=== PATIENT | male | born 1940 | race Caucasian/White ===

== ENCOUNTER 2022-08-28 09:06 | Inpatient (IN) | payer OTHER ==
[~2022-08-28] VITALS: Ht 172.7 cm; Wt 68.0 kg
[2022-08-28 09:42] VITALS: BP_SYST 144
--- NOTE | 2022-08-28 10:52 | NUR ---
Placed in room 01 . Placed on site monitor, blood pressure machine and pulse oximeter. To gown for exam. Side rails up. Report given to ESTEFANY CORDOVA.
--- NOTE | 2022-08-28 10:58 | NUR ---
EDP AT BEDSIDE FOR INITIAL ASSESSMENT.
--- NOTE | 2022-08-28 11:18 | NUR ---
patient c/o weakness/ unable to walk, place in room 1 awaiting for edp for initial assessment.
[2022-08-28 11:20] LABS: BASOPHILS % (AUTO) 0.5 % (0.0-2.0); EOSINOPHILS % (AUTO) 0.4 % (0.0-4.0); HEMATOCRIT 45.7 % (36-54); HEMOGLOBIN 14.7 g/dL (14.0-18.0); LYMPHOCYTES # (AUTO) 2.5 K/uL (1.0-5.5); LYMPHOCYTES % (AUTO) 24.6 % (20.5-51.5); MEAN CORPUSCULAR HEMOGLOBIN 25 pg (27-31); MEAN CORPUSCULAR HGB CONC 32 % (32-36); MEAN CORPUSCULAR VOLUME 79 fL (79.0-98.0); MONOCYTES # (AUTO) 1.1 K/uL (0.0-1.0); MONOCYTES % (AUTO) 10.6 % (1.7-9.3); NEUTROPHILS # (AUTO) 6.4 K/uL (1.8-7.7); NEUTROPHILS % (AUTO) 63.9 % (40.0-70.0); PLATELET COUNT (AUTO) 460 K/uL (130-430); RED BLOOD CELL COUNT(AUTO) 5.81 MIL/uL (4.2-6.2); RED CELL DISTRIBUTION WIDTH 18.5 % (9.0-15.0); WHITE BLOOD COUNT (AUTO) 10.1 K/uL (4.8-10.8)
[2022-08-28 11:29] LABS: ANION GAP 9 (5-15); CALCIUM 9.5 mg/dL (8.4-11.0); CHLORIDE 103 mmol/L (98-107); CREATININE 0.91 mg/dL (0.55-1.30); GLUCOSE 121 mg/dL (70-99); UREA NITROGEN, BLOOD 9 mg/dL (8-21)
[2022-08-28 11:44] LABS: ALANINE AMINOTRANSFERASE 12 U/L (12-78); ALBUMIN 3.3 g/dL (3.4-4.8); ASPARTATE AMINOTRANSFERASE 19 U/L (10-37); FREE T4 (FREE THYROXINE) 1.1 ng/dl (0.8-1.5); THYROID STIMULATING HORMONE 2.01 uIu/mL (0.36-3.74); TOTAL BILIRUBIN 0.5 mg/dL (0.0-1.0)
[2022-08-28 12:28] LABS: BILIRUBIN,URINE NEGATIVE (NEGATIVE); BLOOD, URINE NEGATIVE (NEGATIVE); CLARITY/URINE CLEAR (CLEAR); COLOR,URINE YELLOW (YELLOW); GLUCOSE,URINE NEGATIVE (NEGATIVE); KETONES,URINE TRACE (NEGATIVE); LEUKOCYTE ESTERASE ,URINE NEGATIVE (NEGATIVE); NITRITE, URINE NEGATIVE (NEGATIVE); PH,URINE 5.5 (5.0-8.0); PROTEIN URINE TRACE (NEGATIVE)
[2022-08-28] MEDS ORDERED: AZITHROMYCIN 500 MG in D5W 250 ML IV ONE (13:15)
[2022-08-28] MEDS ORDERED: cefTRIAXone 1 GM IVPB PREMIX 50 ML IV ONE (13:15)
[2022-08-28] MEDS ORDERED: AZITHROMYCIN 500 MG/VIAL (ZITHROMAX) IV ONE (13:20)
--- NOTE | 2022-08-28 13:30 | NUR ---
ADMITTING PHYSICIAN AT BEDSIDE FOR INITIAL ASSESSMENT.
[2022-08-28] MEDS ORDERED: AZITHROMYCIN 500 MG in NS 250 ML IV SCH (13:45)
--- NOTE | 2022-08-28 13:55 | NUR ---
Admit bed requested Patient will be admitted to care of . Admitted to TELE unit. Diagnosis PNA Inpatient (Yes or No) YES Observation (Yes or No) NO Orientation concerns or request close to nursing station (Yes or No) NO Covid Status NEGATIVE On vent or bipap NO Isolation requirements NO Needs a sitter NO From Home (Yes or if No enter name of facility) HOME Requires Dialysis (Yes or No) NO Med Rec Completed (Yes of No) YES
--- NOTE | 2022-08-28 15:21 | NUR ---
CONSULT: CONSULT FOR DR JASMINE CALLED REASON- [facility]NA ORDERING STORM CAP[facility]
--- NOTE | 2022-08-28 15:26 | NUR ---
COVID SWAB DONE AND SENT TO LAB
--- NOTE | 2022-08-28 18:50 | NUR ---
patient ate lunch and remains in bed, uses urinal as needed, will continue to monitor.
--- NOTE | 2022-08-28 20:00 | NUR ---
Pt up in bed, verbally responsive. Denies any pain/discomfort at this time. Appears in no acute distress. Breathing adequately on RA. VSS.
--- NOTE | 2022-08-28 21:15 | NUR ---
Per pt, daughter will bring in list of home meds tomorrow am.
[2022-08-28 23:00] VITALS: BP_SYST 132
[2022-08-28] MEDS: methylPREDNISolone SOD SUCC/PF 62.5 MG/ML VIAL IVP SCH (23:28)
[2022-08-29] MEDS: IPRATROPIUM/ALBUTEROL SULFATE 3 ML AMPUL.NEB (DUONEB) INH SCH ×8 (00:13→23:00)
[2022-08-29] MEDS: BUDESONIDE 0.5 MG/2 ML AMPUL.NEB INH SCH ×3 (00:14→21:24)
--- NOTE | 2022-08-29 07:09 | NUR ---
Pt report endorsed to ESTEFANY Shields. Questions/Concerns answered.
[2022-08-29 07:16] LABS: BASOPHILS % (AUTO) 0.1 % (0.0-2.0); HEMATOCRIT 44.3 % (36-54); HEMOGLOBIN 14.5 g/dL (14.0-18.0); LYMPHOCYTES # (AUTO) 0.7 K/uL (1.0-5.5); LYMPHOCYTES % (AUTO) 11.5 % (20.5-51.5); MEAN CORPUSCULAR HEMOGLOBIN 26 pg (27-31); MEAN CORPUSCULAR HGB CONC 33 % (32-36); MEAN CORPUSCULAR VOLUME 78 fL (79.0-98.0); MONOCYTES # (AUTO) 0.1 K/uL (0.0-1.0); MONOCYTES % (AUTO) 1.1 % (1.7-9.3); NEUTROPHILS # (AUTO) 5.4 K/uL (1.8-7.7); NEUTROPHILS % (AUTO) 87.3 % (40.0-70.0); PLATELET COUNT (AUTO) 429 K/uL (130-430); RED BLOOD CELL COUNT(AUTO) 5.68 MIL/uL (4.2-6.2); RED CELL DISTRIBUTION WIDTH 18.2 % (9.0-15.0); WHITE BLOOD COUNT (AUTO) 6.2 K/uL (4.8-10.8)
--- NOTE | 2022-08-29 07:30 | NUR ---
RECEIVED PT FROM ESTEFANY GARDNER. PT AAOX4. ON N/C AT 2LPM. VSS. PT IV CATH TO RH IS INFILTRATED, REMOVED INTACT. SITE COVERED WITH CDI DRESSING. NEW IV CATH 22G TO LFA PLACED. SITE WLN. PT DENIES PAIN. SIDERAILS UP X2.
[2022-08-29 07:48] LABS: ALANINE AMINOTRANSFERASE 12 U/L (12-78); ALBUMIN 3.1 g/dL (3.4-4.8); ANION GAP 14 (5-15); ASPARTATE AMINOTRANSFERASE 17 U/L (10-37); CHLORIDE 99 mmol/L (98-107); CREATININE 0.77 mg/dL (0.55-1.30); GLUCOSE 156 mg/dL (70-99); TOTAL BILIRUBIN 0.5 mg/dL (0.0-1.0); UREA NITROGEN, BLOOD 11 mg/dL (8-21)
[2022-08-29] MEDS: methylPREDNISolone SOD SUCC/PF 62.5 MG/ML VIAL IVP SCH ×2 (10:14→23:04)
--- NOTE | 2022-08-29 10:14 | NUR ---
SCHEDULED MEDS GIVEN AND TOLERATED WELL.
[2022-08-29] MEDS ORDERED: CARVEDILOL 6.25 MG TABLET (COREG) PO ONE (10:15)
--- NOTE | 2022-08-29 14:00 | NUR ---
DR. JASMINE AT BEDSIDE TO ASSESS PT.
--- NOTE | 2022-08-29 15:15 | NUR ---
SCHEDULED MEDS GIVEN AND TOLERATED WELL.
[2022-08-29] MEDS: cefTRIAXone 1 GM IVPB PREMIX 50 ML IV SCH (15:17)
[2022-08-29] MEDS: AZITHROMYCIN 500 MG in NS 250 ML IV SCH (15:19)
--- NOTE | 2022-08-29 15:24 | NUR ---
DR. JASMINE AT BEDSIDE TO ASSESS PT.
[2022-08-29] MEDS ORDERED: COR3.125 PO (15:25)
[2022-08-29] MEDS ORDERED: GUAN1TAB PO (15:25)
--- NOTE | 2022-08-29 16:00 | NUR ---
MED REC AND BELONGINGS COMPLETED.
--- NOTE | 2022-08-29 19:31 | NUR ---
REPORT GIVEN TO ESTEFANY MAYFIELD. ALL QUESTIONS ADDRESSED.
--- NOTE | 2022-08-29 20:00 | NUR ---
Patient will be admitted to care of Dr. Frantz Ballard. Admitted to telemetry unit. Will go to room 106A. Belongings list completed. Complete and up to date summary report printed. SBAR bedside report given to ESTEFANY Lopez.
--- NOTE | 2022-08-29 20:15 | NUR ---
ADMISSION NOTE Received patient from ER via gurney. Patient admitted with diagnosis of pneumonia. Patient is awake, alert, oriented X 4. Patient oriented to hospital room, call light, toileting, pain management and safety-teach back done. Call light within reach.
[2022-08-29 20:20] VITALS: BP_SYST 133
--- NOTE | 2022-08-29 21:49 | NUR ---
DR. Emmanuel MARIN Patient requested sleeping medication. Received order from Dr. Marin for trazodone PRN.
[2022-08-29 23:04] VITALS: BP_SYST 125
[2022-08-29] MEDS: CARVEDILOL 6.25 MG TABLET (COREG) PO SCH (23:04)
[2022-08-29] MEDS: traZODone HCL 50 MG TABLET (DESYREL) PO PRN (23:04)
[2022-08-29 23:13] VITALS: BP_SYST 133
[2022-08-30] MEDS: IPRATROPIUM/ALBUTEROL SULFATE 3 ML AMPUL.NEB (DUONEB) INH SCH ×6 (03:00→23:00)
--- NOTE | 2022-08-30 03:45 | NUR ---
ROUNDS Patient sleeping in bed, unlabored breathing on room air. No distress noted. Safety precautions in place.
[2022-08-30] MEDS: BUDESONIDE 0.5 MG/2 ML AMPUL.NEB INH SCH ×2 (07:02→21:00)
--- NOTE | 2022-08-30 07:03 | NUR ---
CLOSING Patient stable through shift, no distress noted. Stood up at bedside and sat at edge of bed but did not ambulate. Patient states he gets short of breath if he walks. Reminded about fall precautions and to use call light before getting up. Safety precautions in place.
[2022-08-30 08:00] VITALS: BP_SYST 115
--- NOTE | 2022-08-30 08:00 | NUR ---
Report received from thiokol operator RN for continuity of care. Patient in stable condition.
[2022-08-30] MEDS: CARVEDILOL 6.25 MG TABLET (COREG) PO SCH ×2 (09:07→20:46)
[2022-08-30] MEDS: methylPREDNISolone SOD SUCC/PF 62.5 MG/ML VIAL IVP SCH ×2 (09:07→20:46)
[2022-08-30] MEDS ORDERED: FUROSEMIDE 20 MG TABLET PO ONE (09:45)
[2022-08-30] MEDS: cefTRIAXone 1 GM IVPB PREMIX 50 ML IV SCH (13:57)
[2022-08-30] MEDS: AZITHROMYCIN 500 MG in NS 250 ML IV SCH (14:11)
--- NOTE | 2022-08-30 19:30 | NUR ---
Report given to night nurse RN for continuity of care. Patient in stable condition.
[2022-08-30 20:46] VITALS: BP_SYST 124
[2022-08-30] MEDS: traZODone HCL 50 MG TABLET (DESYREL) PO PRN (20:46)
--- NOTE | 2022-08-30 21:00 | NUR ---
OPENING Received report from day shift RN. Patient resting in bed, 93-95% on room air. Patient states he walked to the bathroom earlier and that he got short of breath by the time he got back to the bed, but not as quickly as before. Denies pain. Safety precautions in place.
[2022-08-31] VITALS: BP_SYST 130
--- NOTE | 2022-08-31 02:22 | NUR ---
ROUNDS Patient sleeping in bed, unlabored breathing on room air.
[2022-08-31] MEDS: IPRATROPIUM/ALBUTEROL SULFATE 3 ML AMPUL.NEB (DUONEB) INH SCH ×6 (03:00→23:00)
--- NOTE | 2022-08-31 05:59 | NUR ---
CLOSING Patient resting in bed. Dyspnea on exertion noted but patient states his breathing seems a little better. 93-95% on room air. Safety precautions in place.
[2022-08-31 06:54] LABS: HEMATOCRIT 43.9 % (36-54); HEMOGLOBIN 13.9 g/dL (14.0-18.0); LYMPHOCYTES # (AUTO) 0.8 K/uL (1.0-5.5); LYMPHOCYTES % (AUTO) 4.8 % (20.5-51.5); MEAN CORPUSCULAR HEMOGLOBIN 25 pg (27-31); MEAN CORPUSCULAR HGB CONC 32 % (32-36); MEAN CORPUSCULAR VOLUME 79 fL (79.0-98.0); MONOCYTES # (AUTO) 0.4 K/uL (0.0-1.0); MONOCYTES % (AUTO) 2.5 % (1.7-9.3); NEUTROPHILS # (AUTO) 14.7 K/uL (1.8-7.7); NEUTROPHILS % (AUTO) 92.7 % (40.0-70.0); PLATELET COUNT (AUTO) 436 K/uL (130-430); RED BLOOD CELL COUNT(AUTO) 5.55 MIL/uL (4.2-6.2); WHITE BLOOD COUNT (AUTO) 15.9 K/uL (4.8-10.8)
[2022-08-31 07:35] VITALS: BP_SYST 139
--- NOTE | 2022-08-31 07:35 | NUR ---
OPENING NOTE Received patient report from ESTEFANY Lopez. Patient resting in bed. A/O x4, [place] speaking. Breathing is even and unlabored on Room Air. No pain, No SOB, No distress noted at this time. Patient on bedrest but ambulates with assist to restroom. Patient's IV to LFA 22g on SL, patent. All needs met at this time, bed is locked in lowest position, call light within reach. Will continue to monitor.
[2022-08-31 07:41] LABS: ALANINE AMINOTRANSFERASE 19 U/L (12-78); ALBUMIN 3.3 g/dL (3.4-4.8); ANION GAP 12 (5-15); ASPARTATE AMINOTRANSFERASE 21 U/L (10-37); C-REACTIVE PROTEIN QUANT 0.8 mg/dL (0-0.5); CALCIUM 9.1 mg/dL (8.4-11.0); CHLORIDE 102 mmol/L (98-107); CHOLESTEROL 190 mg/dL (<200); CREATININE 0.99 mg/dL (0.55-1.30); GLUCOSE 131 mg/dL (70-99); HDL CHOLESTEROL 53 mg/dL (>45); TOTAL BILIRUBIN 0.3 mg/dL (0.0-1.0); TRIGLYCERIDES 115 mg/dL (30-150); UREA NITROGEN, BLOOD 31 mg/dL (8-21)
[2022-08-31] MEDS: BUDESONIDE 0.5 MG/2 ML AMPUL.NEB INH SCH ×2 (08:27→21:00)
[2022-08-31] MEDS: CARVEDILOL 6.25 MG TABLET (COREG) PO SCH ×2 (08:40→20:47)
[2022-08-31 09:00] VITALS: BP_SYST 139
[2022-08-31] MEDS ORDERED: FUROSEMIDE 20 MG TABLET PO SCH (09:00)
[2022-08-31] MEDS: methylPREDNISolone SOD SUCC/PF 62.5 MG/ML VIAL IVP SCH ×2 (09:27→20:46)
[2022-08-31] MEDS ORDERED: FUROSEMIDE 20 MG TABLET PO ONE (09:45)
[2022-08-31] MEDS ORDERED: CARVEDILOL 6.25 MG TABLET (COREG) PO ONE (09:45)
[2022-08-31] MEDS ORDERED: LOSARTAN POTASSIUM 25 MG TABLET PO ONE (09:45)
[2022-08-31 11:34] LABS: ERYTHROCYTE SEDIMENTATION RATE 8 MM/HR (0-15)
--- NOTE | 2022-08-31 12:05 | NUR ---
Patient Rounds Patient resting in bed, family at bedside. Breathing is even and unlabored on Room Air. No pain, No SOB, No distress noted at this time. All needs met at this time, bed is locked in lowest position, call light within reach. Will continue to monitor.
[2022-08-31] MEDS: cefTRIAXone 1 GM IVPB PREMIX 50 ML IV SCH (13:31)
[2022-08-31] MEDS: AZITHROMYCIN 500 MG in NS 250 ML IV SCH (14:36)
[2022-08-31 16:00] VITALS: BP_SYST 119
--- NOTE | 2022-08-31 16:23 | NUR ---
Dietitian Recommendations * Continue Cardiac diet * Ordered: Ensure Enlive BID (ONS provides 700kcals, 40g PRO) Please refer to nutrition assessment for details, thanks! Beatrice Berry MPH, RDN
--- NOTE | 2022-08-31 18:46 | NUR ---
CLOSING NOTE Patient resting in bed. A/O x4, Hungarian speaking. Breathing is even and unlabored on Room Air. No pain, No SOB, No distress noted at this time. Patient on bedrest but ambulates with assist to restroom. Patient's IV to LFA 22g on SL, patent. All needs met at this time, bed is locked in lowest position, call light within reach. Will endorse to mine shifter nurse.
[2022-08-31] MEDS: traZODone HCL 50 MG TABLET (DESYREL) PO PRN (20:46)
[2022-08-31 20:47] VITALS: BP_SYST 122
[2022-08-31] MEDS ORDERED: ACETAMINOPHEN 500 MG TABLET PO PRN (22:30)
--- NOTE | 2022-08-31 22:32 | NUR ---
2214 - Patient's temp 100.1. Received order from Dr. Meredith for Tylenol PRN for temp>100. 2220 - On reassessment, patient's temp 99.2.
[2022-09-01 00:23] VITALS: BP_SYST 118
[2022-09-01] MEDS: IPRATROPIUM/ALBUTEROL SULFATE 3 ML AMPUL.NEB (DUONEB) INH SCH ×3 (03:00→11:23)
--- NOTE | 2022-09-01 07:12 | NUR ---
CLOSING Patient stable through night. Afebrile. Ambulated to bathroom with steady gait. Some shortness of breath noted on return that patient states is a little better than before. Patient reported he had diarrhea this morning and yesterday during the day. Safety precautions in place.
[2022-09-01] MEDS: methylPREDNISolone SOD SUCC/PF 62.5 MG/ML VIAL IVP SCH (08:37)
[2022-09-01] MEDS: CARVEDILOL 6.25 MG TABLET (COREG) PO SCH (08:39)
[2022-09-01] MEDS ORDERED: ASPIRIN 81 MG TAB.CHEW PO SCH (09:00)
[2022-09-01] MEDS ORDERED: LOSARTAN POTASSIUM 25 MG TABLET PO SCH (09:00)
[2022-09-01] MEDS ORDERED: FUROSEMIDE 20 MG TABLET PO SCH (09:00)
[2022-09-01] MEDS: BUDESONIDE 0.5 MG/2 ML AMPUL.NEB INH SCH (09:13)
[2022-09-01 11:40] VITALS: BP_SYST 116
[2022-09-01] MEDS: cefTRIAXone 1 GM IVPB PREMIX 50 ML IV SCH (13:43)
[2022-09-01] MEDS ORDERED: KEF125/5 PO (13:59)
[2022-09-01] MEDS ORDERED: predniSONE 20 MG TABLET PO ONE (14:15)
[2022-09-01] MEDS: AZITHROMYCIN 500 MG in NS 250 ML IV SCH (14:36)
[2022-09-01 14:41] LABS: HEMATOCRIT 40.1 % (36-54); HEMOGLOBIN 12.9 g/dL (14.0-18.0); LYMPHOCYTES # (AUTO) 0.5 K/uL (1.0-5.5); LYMPHOCYTES % (AUTO) 4.6 % (20.5-51.5); MEAN CORPUSCULAR HEMOGLOBIN 25 pg (27-31); MEAN CORPUSCULAR HGB CONC 32 % (32-36); MEAN CORPUSCULAR VOLUME 79 fL (79.0-98.0); MONOCYTES # (AUTO) 0.5 K/uL (0.0-1.0); MONOCYTES % (AUTO) 4.3 % (1.7-9.3); NEUTROPHILS # (AUTO) 9.7 K/uL (1.8-7.7); NEUTROPHILS % (AUTO) 91.1 % (40.0-70.0); PLATELET COUNT (AUTO) 334 K/uL (130-430); RED BLOOD CELL COUNT(AUTO) 5.07 MIL/uL (4.2-6.2); RED CELL DISTRIBUTION WIDTH 18.8 % (9.0-15.0); WHITE BLOOD COUNT (AUTO) 10.7 K/uL (4.8-10.8)
[2022-09-01 15:44] VITALS: BP_SYST 121
[2022-09-02] MEDS ORDERED: predniSONE 20 MG TABLET PO SCH (09:00)
== END 2022-09-01 16:30 | disposition home or self-care (01) | DRG 871 ==
LOC: SED 09:06 → STU 13:32 → SMU 09-01 15:57
PROVIDERS: ADMIT Family Medicine; ATTEND Family Medicine
DX: A41.9 Sepsis, unspecified organism (principal); J18.9 Pneumonia, unspecified organism; J96.01 Acute respiratory failure with hypoxia; I50.40 Unspecified combined systolic (congestive) and diastolic (congestive) heart failure; I11.0 Hypertensive heart disease with heart failure; J43.9 Emphysema, unspecified; Z20.822 Contact with and (suspected) exposure to COVID-19; Z87.891 Personal history of nicotine dependence; Z87.81 Personal history of (healed) traumatic fracture; Z79.899 Other long term (current) drug therapy
CPT/HCPCS: 36415; 71045; 71250-TC; 76376; 80053; 80061; 81003; 82550; 83605; 83735; 83880; 84439; 84443; 84484; 85025; 85651-TC; 86140; 87040; 93005; 93306; 94640; 94760; 96365; 96367; 99291; G0378; J0456; J0696; J2930; J7050; J7060; J7512; J7626